=== PATIENT | female | born 1980 | race Caucasian/White ===

== ENCOUNTER 2018-12-03 06:33 | Day surgery (SDC) | payer OTHER ==
[2018-12-03] MEDS ORDERED: LIDOCAINE 2% (MDV) 20 ML INJ (06:58)
[2018-12-03] MEDS ORDERED: BUPIVACAINE 0.25% (MPF) 30 ML INJ (06:58)
[2018-12-03] MEDS ORDERED: BUPIVACAINE 0.5% (SDV) 30 ML INJ (06:58)
[2018-12-03] MEDS ORDERED: CEFAZOLIN 2 GM/50 ML (PMX) 50 ML IVPB (07:00)
[2018-12-03] MEDS: SOD CHLORIDE 0.9% 1,000 ML IV (07:14)
[2018-12-03 07:34] LABS: ADD MAN DIFF? NO
[2018-12-03 07:38] LABS: WHITE BLOOD COUNT 4.8 10^3/ul (4.8-10.8)
[2018-12-03 07:38] LABS: BASOPHILS % 0.4 % (0.0-2.0); EOSINOPHILS # 0.1 10^3/ul (0.0-0.5); EOSINOPHILS % 2.1 % (0.0-7.0); HEMATOCRIT 39.7 % (37.0-47.0); HEMOGLOBIN 12.9 g/dl (12.0-16.0); LYMPHOCYTES # 1.7 10^3/ul (0.8-2.9); LYMPHOCYTES % 34.5 % (15.0-51.0); MEAN CORPUSCULAR HEMOGLOBIN 28.5 pg (29.0-33.0); MEAN CORPUSCULAR HGB CONC 32.5 g/dl (32.0-37.0); MEAN CORPUSCULAR VOLUME 87.6 fl (82.0-101.0); MEAN PLATELET VOLUME 11.9 fl (7.4-10.4); MONOCYTE # 0.4 10^3/ul (0.3-0.9); MONOCYTES % 7.7 % (0.0-11.0); NEUTROPHIL # 2.7 10^3/ul (1.6-7.5); NEUTROPHILS % 55.1 % (39.0-77.0); PLATELET COUNT 225 10^3/UL (140-415); RED BLOOD COUNT 4.53 10^6/ul (4.20-5.40); RED CELL DISTRIBUTION WIDTH 12.4 % (11.5-14.5)
[2018-12-03 07:57] LABS: INR 0.99; PROTIME 13.2 Sec (11.9-14.9)
[2018-12-03 07:58] LABS: ALANINE AMINOTRANSFERASE 18 IU/L (13-69); ALBUMIN 4.3 g/dl (3.3-4.9); ALBUMIN/GLOBULIN RATIO 1.38; ALKALINE PHOSPHATASE 51 IU/L (42-121); ANION GAP 12 (5-13); ASPARTATE AMINO TRANSFERASE 18 IU/L (15-46); BILIRUBIN,INDIRECT 0.4 mg/dl (0-1.1); BILIRUBIN,TOTAL 0.4 mg/dl (0.2-1.3); BLOOD UREA NITROGEN 11 mg/dl (7-20); CALCIUM 9.4 mg/dl (8.4-10.2); CARBON DIOXIDE 25 mmol/L (21-31); CHLORIDE 110 mmol/L (97-110); CREATININE 0.64 mg/dl (0.44-1.00); Estimated GFR > 60 mL/min (>60); GLUCOSE 112 mg/dl (70-220); PARTIAL THROMBOPLASTIN TIME 31.9 Sec (23.0-35.0); POTASSIUM 4.2 mmol/L (3.5-5.1); TOTAL PROTEIN 7.4 g/dl (6.1-8.1)
[2018-12-03 08:28] LABS: SODIUM 147 mmol/L (135-144)
[2018-12-03] MEDS ORDERED: ONDANSETRON 4 MG INJ IV (09:00)
[2018-12-03] MEDS ORDERED: MIDAZOLAM 1 MG/ML 2 ML INJ ×2 (09:00)
[2018-12-03] MEDS ORDERED: HYDROmorphONE 1 MG/5 ML IV SYRINGE IV ×2 (09:00)
[2018-12-03] MEDS ORDERED: PROPOFOL 20 ML (09:01)
[2018-12-03] MEDS ORDERED: LIDOCAINE 1% (MDV) 20 ML INJ (09:01)
[2018-12-03] MEDS ORDERED: CEFAZOLIN 1 GM INJ (09:09)
[2018-12-03] MEDS ORDERED: FAMOTIDINE 20 MG INJ (09:19)
[2018-12-03] MEDS ORDERED: ONDANSETRON 4 MG INJ (09:19)
[2018-12-03] MEDS ORDERED: METOCLOPRAMIDE 10 MG INJ (09:19)
[2018-12-03] MEDS: BUPIVACAINE 0.25% (MPF) 30 ML INJ (09:25)
[2018-12-03] MEDS ORDERED: HYDROCODONE/APAP (5/325) TAB PO (10:00)
== END 2018-12-03 11:08 | disposition home or self-care (01) ==
LOC: SDS 06:33
DX: L72.0 Epidermal cyst (principal)
CPT/HCPCS: 14040; 80053; 85025; 85610; 85730; 88307